=== PATIENT | female | born 1995 | race Caucasian/White ===

== ENCOUNTER 2023-03-23 08:40 | Inpatient (IN) | payer OTHER, SELFPAY ==
[2023-03-23] MEDS: LR 1000 IV (09:24)
[2023-03-23 09:33] LABS: INR 0.86
[2023-03-23 09:34] LABS: APTT 24.2 Sec (23.4-35.0)
[2023-03-23 09:38] LABS: ALT (SGPT) 18 U/L (0-35); AST (SGOT) 30 U/L (14-36); Albumin 3.7 g/dl (3.5-5.0); Alkaline Phosphatase 161 U/L (38-126); Blood Urea Nitrogen 7 mg/dl (7-17); Carbon Dioxide 18 mmol/L (22-30); Chloride 109 mmol/L (98-107); Glucose 80 mg/dl (70-99); Potassium 4.2 mmol/L (3.5-5.1); Sodium 131 mmol/L (135-145); Total Bilirubin 0.5 mg/dl (0.2-1.3); Total Protein 6.5 g/dl (6.3-8.2); Uric Acid 3.9 mg/dl (2.5-6.2); eGFR > 60.00
[2023-03-23 09:46] LABS: % Basophils 0.2 % (0-2); % Eosinophils 1.4 % (0-6); % Immature Granulocytes 0.3 % (0-0.5); % Lymphocytes 11.5 % (20.5-51.1); % Monocytes 5.2 % (1.7-9.3); % Neutrophils 81.4 % (42.2-75.2); Absolute Eosinophils 0.2 10^3/uL (0-0.7); Absolute Lymphocytes 1.4 10^3/uL (1.2-3.4); Absolute Monocytes 0.6 10^3/uL (0.1-0.6); Hematocrit 36.1 % (37.0-47.0); Hemoglobin 12.5 g/dL (12.0-16.0); Mean Corp Hgb Conc. 34.6 g/dL (33.0-37.0); Mean Corpuscular Hgb 30.5 pg (27.0-31.0); Mean Platelet Volume 10.5 fL (7.4-10.4); Nucleated Red Blood Cells % 0 %; Platelet Count 230 10^3/uL (130-400); Red Cell Dist. Width 12.4 % (11.5-14.5); White Blood Cell Count 12.3 10^3/uL (4.8-10.8)
[2023-03-23 10:18] VITALS: BP 115/68; BMI 31.1
[2023-03-23 10:23] LABS: Hepatitis B Surface Antigen Negative (Negative)
[2023-03-23 10:47] LABS: Protein/creatinine Ratio 0.2; Urine Protein 12 mg/dl
[2023-03-23 11:07] LABS: Urine Albumin Negative (Neg - Trace); Urine Bilirubin Negative (Negative); Urine Character Clear (Clear); Urine Color Yellow; Urine Glucose Negative (Negative); Urine Ketone Negative (Negative); Urine Leukocyte Negative (Negative); Urine Nitrite Negative (Negative); Urine Occult Blood Negative (Negative); Urine Urobilinogen Negative (Neg - 1+)
[2023-03-23] MEDS: SUBLIMAZE 100 MCG EPIDURAL (15:37)
[2023-03-23] MEDS: FENTANYL/BUPIVACAINE 100 EPIDURAL (15:37)
[2023-03-23] MEDS: PITOCIN 30 UNITS/NSS 500 ML IV (16:26)
[2023-03-23 22:19] LABS: Cord ABG Comment CORD BLOOD
[2023-03-23 22:21] LABS: B.E. Cord ABG -5.5 mMOL/L; HCO3 Cord ABG 24.3 mmol/L; O2 Saturation % Cord ABG 36.8 %; PCO2 Cord ABG 65 mmHg; PO2 Cord ABG 22 mmHg; pH Cord ABG 7.18
[2023-03-23 22:24] LABS: B.E. Cord ABG -5.4 mMOL/L; HCO3 Cord ABG 22.4 mmol/L; O2 Saturation % Cord ABG 45.6 %; PCO2 Cord ABG 51 mmHg; PO2 Cord ABG 26 mmHg; pH Cord ABG 7.25
[2023-03-24] MEDS: MOTRIN 600 MG PO ×3 (01:15→18:56)
[2023-03-24] MEDS: TYLENOL 650 MG PO ×3 (01:16→18:56)
[2023-03-24 06:05] LABS: Hematocrit 33.6 % (37.0-47.0); Hemoglobin 11.4 g/dL (12.0-16.0)
[2023-03-24] MEDS: SENOKOT-S 1 TABLET PO (08:34)
[2023-03-24 20:30] LABS: Rubella Negative
[2023-03-24] MEDS: PRENATAL PLUS 1 TABLET PO (21:05)
[2023-03-25] MEDS: MOTRIN 600 MG PO (04:26)
[2023-03-25] MEDS: TYLENOL 650 MG PO (04:26)
[2023-03-25 13:10] LABS: HIV Combo Negative (Negative)
[2023-03-25 15:31] LABS: Syphilis/T. pallidum Ab Reflex Negative (Negative)
== END 2023-03-25 14:13 | disposition home or self-care (01) | DRG 806 ==
LOC: LDRP 08:40
PROVIDERS: Obstetrics & Gynecology; ADMITTING PHYSICIAN Obstetrics & Gynecology; FAMILY PHYSICIAN Internal Medicine
PROC: 10E0XZZ Delivery of Products of Conception, External Approach (ICD-10-PCS; 2023-03-23)
PROC: 10D07Z6 Extraction of Products of Conception, Vacuum, Via Natural or Artificial Opening (ICD-10-PCS; 2023-03-23)
PROC: 0KQM0ZZ Repair Perineum Muscle, Open Approach (ICD-10-PCS; 2023-03-23)
DX: O99.12 Other diseases of the blood and blood-forming organs and certain disorders involving the immune mechanism complicating childbirth (principal); D68.51 Activated protein C resistance; Z37.0 Single live birth; Z3A.40 40 weeks gestation of pregnancy; O76 Abnormality in fetal heart rate and rhythm complicating labor and delivery; O77.0 Labor and delivery complicated by meconium in amniotic fluid; O70.1 Second degree perineal laceration during delivery
CPT/HCPCS: 88307; 36415; 80053; 81003; 82570; 82803; 84156; 84550; 85014; 85018; 85025; 85610; 85730; 86762; 86780; 86850; 86900; 86901; 87340; 87389

== ENCOUNTER → 2024-10-22 16:54 | Outpatient (REF) | payer OTHER, SELFPAY | LOC: RAD 16:54 | PROVIDERS: ATTENDING PHYSICIAN Obstetrics & Gynecology; FAMILY PHYSICIAN Internal Medicine | DX: Z36.9 Encounter for antenatal screening, unspecified (principal) | CPT/HCPCS: 76801 ==

== ENCOUNTER → 2024-11-16 14:53 | Outpatient (REF) | payer OTHER, SELFPAY | LOC: PNTC 14:53 | PROVIDERS: ATTENDING PHYSICIAN Advanced Practice Midwife | DX: Z36.0 Encounter for antenatal screening for chromosomal anomalies (principal); Z36.82 Encounter for antenatal screening for nuchal translucency | CPT/HCPCS: 76801; 76813 ==